=== PATIENT | female | born 1950 | race Hispanic/Latino ===

== ENCOUNTER → 2024-05-18 | Outpatient (CLI) | payer MEDICARE ==
[~2024-05-18] MED LIST: ASPI-1012 PO; ATEN25TA PO; ATOR20TA65 PO; CARB100T12 PO; CIPR-279 PO; ESOM40CA PO; FURO20TA4 PO; GABA-531 PO; HYDR-4060 PO; INSU3INS5 SQ; LISI5TAB21 PO; MECL-302 PO; POTA10CA95 PO; SERT-439 PO; TOUJEO SQ; [UNRECOGNIZED DRUG - OTHER] PO
--- NOTE | 2024-05-19 17:57 | HMCSR ---
APPROVED REPORT Right Lower Extremity Venous Study for DVT. Indications s/p Clarivein Right GSV 05/15/2024 Vein Imaging CFV (R): Normal flow, augmentation and compression. No evidence of DVT. 8.0mm 622ms of reflux. SFJ (R): Normal flow, augmentation and compression. No evidence of DVT. FEM (R): Normal flow, augmentation and compression. No evidence of DVT. POP (R): Normal flow, augmentation and compression. No evidence of DVT. DFV (R): Normal flow, augmentation and compression. No evidence of DVT. PTV (R): Normal flow, augmentation and compression. No evidence of DVT. Peroneals (R): Normal flow, augmentation and compression. No evidence of DVT. Technologist Impression Deep veins of the right lower extremity appear patent and compressible without thrombus. Right GSV is closed from junction to mid calf. Conclusion Successful ablation of right greater saphenous vein No DVT Conclusion Successful ablation of right greater saphenous vein No DVT
== END | disposition home or self-care (01) ==
LOC: SHCH 15:20
PROVIDERS: ATTEND Internal Medicine Cardiovascular Disease
DX: Z09 Encounter for follow-up examination after completed treatment for conditions other than malignant neoplasm (principal); I87.2 Venous insufficiency (chronic) (peripheral)
CPT/HCPCS: 93971